=== PATIENT | male | born 1965 | race American Indian/Alaskan Native ===

== ENCOUNTER 2017-06-04 09:18 | Emergency (ER) | payer SELFPAY ==
[2017-06-04 10:14] VITALS: BP 197/136
== END 2017-06-04 11:27 ==
LOC: ED 09:18
DX: M54.2 Cervicalgia (principal); Z53.21 Procedure and treatment not carried out due to patient leaving prior to being seen by health care provider

== ENCOUNTER 2018-03-19 05:48 | Emergency (ER) | payer SELFPAY ==
[2018-03-19 07:22] LABS: Basophils # (Auto) 0.1 K/mm3 (0.0-0.1); Basophils % (Auto) 1.1 % (0.0-1.8); Eosinophils # (Auto) 0.3 K/mm3 (0.0-0.4); Eosinophils % (Auto) 4.6 % (0.0-4.3); Hematocrit 45.5 % (35.5-45.6); Hemoglobin 15.3 gm/dl (11.8-15.2); Lymphocytes # (Auto) 2.5 K/mm3 (1.2-5.4); Lymphocytes % (Auto) 33.9 % (13.4-35.0); Mean Corpuscular HGB Conc 34 % (32-34); Mean Corpuscular Hemoglobin 30 pg (28-32); Mean Corpuscular Volume 88 fl (84-94); Monocytes # (Auto) 0.4 K/mm3 (0.0-0.8); Monocytes % (Auto) 5.8 % (0.0-7.3); Platelet Count 170 K/mm3 (140-440); Red Blood Count 5.19 M/mm3 (3.65-5.03); Red Cell Distribution Width 13.8 % (13.2-15.2)
--- NOTE | 2018-03-19 07:35 | Cat Scan Report ---
FINAL REPORT EXAM: CT HEAD/BRAIN WO CON HISTORY: headache TECHNIQUE: Routine axial imaging was obtained of the brain without IV contrast. FINDINGS: The ventricular system is appropriate in size and is symmetric. There is no evidence of acute stroke or hemorrhage. There are no extra-axial fluid collections. The visualized sinuses are clear. The mastoid air cells are well pneumatized. The calvarium appears intact IMPRESSION: No acute intracranial process.
[2018-03-19 07:41] LABS: BUN/Creatinine Ratio 19; Blood Urea Nitrogen 15 mg/dL (9-20); Calcium 9.3 mg/dL (8.4-10.2); Hemolysis Index 9
[2018-03-19 09:36] VITALS: BP 176/122
--- NOTE | 2018-03-19 09:45 | Emergency Department Report ---
ED General Adult HPI - General Chief complaint: High BP Stated complaint: HBP Time Seen by Provider: 03/19/18 09:39 Source: patient Mode of arrival: Ambulatory Limitations: No Limitations - History of Present Illness Initial comments: Mr. Sepulveda is a 52-year-old male with history of hypertension and chronic back pain due to previous injury presents with high blood pressure. He had had intermittent headache for the last 2 weeks. He's noticed blood in semen. He also has left lower quadrant discomfort intermittently over the last week. He had a close family friend took his blood pressure, systolic blood pressure was over 200 mmHg. He states that he just knew that it was "time to come in and get checked out". He is currently symptom-free. He took his 's medications this morning. He has been without health insurance of the [facility] 6 months. He has not taken blood pressure medications within the last 6 months. Previously has been on lisinopril 40 mg tablets. Denies vomiting. Denies blurry vision. Denies paresthesias. -: week(s) (2) Severity scale (0 -10): 0 - Related Data Home Medications Medication Instructions Recorded Confirmed Last Taken Lisinopril/Hydrochlorothiazide 20 mg PO DAILY 05/27/14 01/21/15 01/20/15 [Zestoretic 20-25 mg] Previous Rx's Medication Instructions Recorded Last Taken Type Lisinopril [Zestril TAB] 40 mg PO QDAY 90 Days #90 tablet 03/19/18 Unknown Rx hydroCHLOROthiazide [HCTZ] 25 mg PO QDAY 90 Days #90 tablet 03/19/18 Unknown Rx Allergies Allergy/AdvReac Type Severity Reaction Status Date / Time No Known Allergies Allergy Verified 01/21/15 05:13 ED Review of Systems ROS: Stated complaint: HBP Other details as noted in HPI Comment: All other systems reviewed and negative Constitutional: denies: fever, malaise Respiratory: denies: cough Cardiovascular: denies: chest pain ED Past Medical Hx - Past Medical History Hx Hypertension: Yes Additional medical history: Chronic Back Pain - Surgical History Additional Surgical History: back 2008 - Social History Smoking Status: Never Smoker Substance Use Type: None - Medications Home Medications: Home Medications Medication Instructions Recorded Confirmed Last Taken Type Lisinopril/Hydrochlorothiazide 20 mg PO DAILY 05/27/14 01/21/15 01/20/15 History [Zestoretic 20-25 mg] Lisinopril [Zestril TAB] 40 mg PO QDAY 90 Days #90 tablet 03/19/18 Unknown Rx hydroCHLOROthiazide [HCTZ] 25 mg PO QDAY 90 Days #90 tablet 03/19/18 Unknown Rx ED Physical Exam - General Limitations: No Limitations General appearance: alert, in no apparent distress, other (well appearing healthy NAD) - Head Head exam: Present: atraumatic, normocephalic - Eye Eye exam: Present: normal appearance - ENT ENT exam: Present: mucous membranes moist - Neck Neck exam: Present: normal inspection. Absent: tenderness, meningismus - Respiratory Respiratory exam: Present: normal lung sounds bilaterally. Absent: respiratory distress, wheezes, rales, rhonchi - Cardiovascular Cardiovascular Exam: Present: regular rate, normal rhythm, normal heart sounds. Absent: systolic murmur, diastolic murmur, rubs, gallop - GI/Abdominal GI/Abdominal exam: Present: soft, normal bowel sounds. Absent: distended, tenderness, guarding - Rectal Rectal exam: Present: deferred - Extremities Exam Extremities exam: Present: normal inspection - Back Exam Back exam: Present: normal inspection - Neurological Exam Neurological exam: Present: alert, oriented X3 - Psychiatric Psychiatric exam: Present: normal affect, normal mood - Skin Skin exam: Present: warm, dry, intact, normal color. Absent: rash ED Course Vital Signs 03/19/18 03/19/18 06:45 09:35 Temperature 98.1 F 98.2 F Pulse Rate 74 68 Respiratory 18 Rate Blood Pressure 191/119 Blood Pressure 176/122 [Right] O2 Sat by Pulse 100 100 Oximetry ED Medical Decision Making - Lab Data Result diagrams: 03/19/18 07:06 03/19/18 07:06 Vital Signs - 24 hr 03/19/18 03/19/18 06:45 09:35 Temperature 98.1 F 98.2 F Pulse Rate 74 68 Respiratory 18 Rate Blood Pressure 191/119 Blood Pressure 176/122 [Right] O2 Sat by Pulse 100 100 Oximetry - EKG Data -: EKG Interpreted by [facility] EKG shows normal: sinus rhythm, axis, QRS complexes, ST-T waves - EKG Data 03/19/18 09:43 first degree AV block - Medical Decision Making 1. hypertensive urgency due to noncompliance without access to health care due to lack of insurance, rx: hctz, lisinopril, patient is asymptomatic without end organ damage 2. blood in semen, will need primary care, recommended [facility] 3. intermittent LLQ pain no indication of acute inflammatory process or sepsis , recommended primary care including PSA, colonoscopy Vital Signs 03/19/18 03/19/18 06:45 09:35 Temperature 98.1 F 98.2 F Pulse Rate 74 68 Respiratory 18 Rate Blood Pressure 191/119 Blood Pressure 176/122 [Right] O2 Sat by Pulse 100 100 Oximetry Critical care attestation.: If time is entered above; I have spent that time in minutes in the direct care of this critically ill patient, excluding procedure time. ED Disposition Clinical Impression: Hypertensive urgency, Abdominal pain, Blood in semen Disposition: - TO HOME OR SELFCARE Is pt being admited?: No Does the pt Need Aspirin: No Condition: Stable Instructions: Hypertension (ED) Prescriptions: hydroCHLOROthiazide [HCTZ] 25 mg PO QDAY 90 Days #90 tablet Lisinopril [Zestril TAB] 40 mg PO QDAY 90 Days #90 tablet Referrals: [facility] [Outside] - 3-5 Days
== END 2018-03-19 09:54 | disposition home or self-care (01) ==
LOC: ED 05:48
DX: I16.0 Hypertensive urgency (principal); R10.32 Left lower quadrant pain; R36.1 Hematospermia; G89.29 Other chronic pain; Z79.899 Other long term (current) drug therapy
CPT/HCPCS: 36415; 70450; 80048; 85025; 93005; 93010